=== PATIENT | male | born 2000 | race Caucasian/White ===

== ENCOUNTER 2019-01-06 16:48 | Emergency (ER) | payer BC, SELFPAY ==
[2019-01-06 16:49] VITALS: BP 137/84; PULSE 83; RESP 16; TEMP 36.7; O2SAT 100; BMI 17.9
--- NOTE | 2019-01-06 16:51 | RAD_ITS ---
STUDY: X-RAY CHEST REASON FOR EXAM: Male, 18 years old. Trauma, shortness of breath TECHNIQUE: PA and lateral views of the chest. COMPARISON: None. FINDINGS: The lungs are clear and expanded. There is no demonstrated pleural abnormality. Normal size heart. Normal mediastinum and chester. Normal visualized pulmonary arteries. Normal visualized aortic arch and descending thoracic aorta. There is a dextroscoliosis of the thoracic spine. Normal visualized ribs, clavicles, and shoulders. There is no demonstrated abnormality of the visualized soft tissue structures of the upper abdomen. RAD/Chest PA and Lateral IMPRESSION: Normal x-ray examination of the chest. Electronically Signed: Reji Mcbride MD at 17:09 EDT Tel , Service support ,
--- NOTE | 2019-01-06 17:39 | ED.VISSUMM ---
- ER Visit Summary Date of Service: 01/06/19 Chief Complaint: Chest pain History of Present Illness: The patient is a 18 M with chest pain since yesterday evening. He was wrestling, and he was hit in the chest with the shoulder. He complains of diffuse chest pain, worse on the right side. Worse with moving and breathing. Worse with moving his arm. It radiates into his right shoulder and right neck. Denies any shortness of breath or cough. Denies any history of heart or lung disease. Denies any other pains or injuries. Denies any neurologic symptoms. Physical Examination: Afebrile and vital signs unremarkable. Alert and oriented. No acute distress. Moving comfortably, breathing comfortably. Head and neck atraumatic. Heart regular rate and rhythm. Lungs clear. Chest wall diffusely tender to palpation. No crepitus. Back is nontender. Skin appears normal. Abdomen soft and nontender. Pulses strong and equal. Good strength and sensation in all extremities. Test Results: Chest x-ray is negative. Emergency Department Course and Treatment: Patient has myofascial chest pain. His x-rays were negative. He will be treated with Motrin. Follow-up with primary care. Return for any new or worsening issues. Treatment Plan: As above Disposition: Discharged Impression: 1. Chest wall pain This note was generated with [employer] dictation software. It may contain incorrect words, spelling, and punctuation that were not noted in review of the chart prior to signing ED Disposition - Plan for ED Patient: Referrals: Araceli Meyers MD [Primary Care Provider] -
[2019-01-06] MEDS: Ibuprofen 600 MG Tablet PO (17:41)
--- NOTE | 2019-01-06 17:42 | ED.DEP ---
ED Disposition - Plan for ED Patient: Instructions: Chest Wall Strain Prescriptions: Ibuprofen [Motrin] 800 mg PO TID PRN PRN #20 tab PRN Reason: Pain Prescription Printed Referrals: Araceli Meyers MD [Primary Care Provider] -
[2019-01-06 17:52] VITALS: PULSE 88; RESP 17; O2SAT 98
== END 2019-01-06 17:53 | disposition home or self-care (01) ==
LOC: ED 17:48
PROVIDERS: Emergency Provider Emergency Medicine; Family Provider Pediatrics; PCP Pediatrics
DX: R07.89 Other chest pain (principal)
CPT/HCPCS: 71046; 99283

== ENCOUNTER → 2019-01-31 14:38 | Outpatient (CLI) | payer BC, SELFPAY ==
[2019-01-06 16:49] VITALS: BMI 17.9
--- NOTE | 2019-01-31 14:40 | RAD_ITS ---
STUDY: X-RAY - RIGHT CLAVICLE REASON FOR EXAM: Male, 18 years old. Pain of the right clavicle. TECHNIQUE: 2 view(s) of the clavicle. COMPARISON: None. FINDINGS: Normal clavicle. Normal acromioclavicular articulation. Normal visualized sternoclavicular articulation. Normal visualized pulmonary apex. RAD/Clavicle IMPRESSION: Normal x-ray examination of the clavicle. Electronically Signed: Heavenly Bermudez MD at 18:38 EDT , Service support ,
== END ==
PROVIDERS: Family Provider Pediatrics; PCP Pediatrics; Referring Provider Physician Assistant; Visit Provider Physician Assistant
DX: M25.511 Pain in right shoulder (principal)
CPT/HCPCS: 73000